=== PATIENT | male | born 1990 | race Caucasian/White ===

== ENCOUNTER 2017-11-16 11:07 | Emergency (ER) | payer OTHER ==
[~2017-11-16] VITALS: Ht 170.2 cm; Wt 92.1 kg
[~2017-11-16 11:07] MED LIST: ALBUTEROL SULF8.5 GM INH; CYCLOBENZAPRINE10 MG PO; EFFEXOR XR150 MG PO; IBUPROFEN800 MG PO; NAPROXEN500 MG PO; NYQUIL D COLD295 ML; QVAR7.3 G1 INH; SEROQUEL25 MG PO; SEROQUEL300 MG PO; TRAMADOL HCL50 MG PO; ZYPREXA15 MG PO
[2017-11-16] MEDS ORDERED: BELBUCA600 MCG (11:22)
[2017-11-16] MEDS ORDERED: VENTOLIN HFA18 GM INH (11:52)
[2017-11-16] MEDS ORDERED: EPIPEN 2-P0.3 MG/0.3 IM (11:52)
== END 2017-11-16 12:28 | disposition home or self-care (01) ==
LOC: ED 11:07
DX: Z76.0 Encounter for issue of repeat prescription (principal); Z88.0 Allergy status to penicillin; Z91.030 Bee allergy status; Z91.038 Other insect allergy status; Z88.8 Allergy status to other drugs, medicaments and biological substances; Z79.899 Other long term (current) drug therapy
CPT/HCPCS: 99281